=== PATIENT | female | born 1945 | race Caucasian/White ===

== ENCOUNTER 2023-04-29 11:32 | Observation (INO) | payer MEDICARE, OTHER ==
[~2023-04-29] VITALS: Ht 152.4 cm; Wt 66.0 kg
[2023-04-29 12:26] LABS: BASOPHILS ABSOLUTE AUTO 0.03 K/mm3 (0.00-0.23); BASOPHILS PERCENT AUTO 1 % (0-2); EOSINOPHILS ABSOLUTE AUTO 0.09 K/mm3 (0.00-0.68); EOSINOPHILS PERCENT AUTO 1 % (0-6); Hematocrit 42.6 % (33.0-51.0); Hemoglobin 14.1 g/dL (11.5-16.0); IMMATURE GRAN ABSOLUTE AUTO 0.01 K/mm3 (0.00-0.10); IMMATURE GRAN PERCENT AUTO 0 % (0-1); LYMPHOCYTES ABSOLUTE AUTO 2.14 K/mm3 (0.84-5.20); LYMPHOCYTES PERCENT AUTO 33 % (21-46); MONOCYTES ABSOLUTE AUTO 0.47 K/mm3 (0.16-1.47); MONOCYTES PERCENT AUTO 7 % (4-13); Mean Corpuscular HGB 30.5 pg (26.0-34.0); Mean Corpuscular HGB Conc 33.1 g/dL (31.5-36.5); Mean Corpuscular Volume 92 fL (80-100); Mean Platelet Volume 9.5 fL (9.1-12.4); NEUTROPHILS ABSOLUTE AUTO 3.72 K/mm3 (1.96-9.15); NEUTROPHILS PERCENT AUTO 58 % (41-73); Platelet Count 252 K/mm3 (150-400); RDW Coefficient Variation 12.5 % (11.7-14.2); RDW Standard Deviation 42.3 fL (35.1-46.3); Red Blood Cell Count 4.62 M/mm3 (3.80-5.20); White Blood Cell Count 6.46 K/mm3 (4.00-11.30)
[2023-04-29 12:40] LABS: Albumin, Blood 3.2 g/dL (3.4-5.0); Albumin/Globulin Ratio 0.9 (0.8-1.8); Bilirubin, Total 0.5 mg/dL (0.1-1.0); Bun/Creatinine Ratio 20.4 (12.0-20.0); Calcium, Blood 8.8 mg/dL (8.5-10.1); Creatinine, Blood 0.83 mg/dL (0.40-1.00); Globulin, Blood 3.6 g/dL (2.2-4.0); Potassium, Blood 4.3 mmol/L (3.5-5.5); Total Protein, Blood 6.8 g/dL (6.4-8.2)
[2023-04-29] MEDS ORDERED: AMLODIPINE BESYL5 MG PO (14:27)
[2023-04-29] MEDS ORDERED: IMITREX50 M2 PO (14:27)
[2023-04-29] MEDS ORDERED: TEMA30 PO (14:27)
[2023-04-29] MEDS ORDERED: FUROSEMIDE20 MG PO (14:27)
[2023-04-29] MEDS ORDERED: K-Dur10 MEQ (14:27)
[2023-04-29] MEDS ORDERED: PROPRANOLOL HCL80 MG PO (16:08)
[2023-04-29 16:10] VITALS: BP 160/88
[2023-04-29] MEDS ORDERED: LISI20 (16:46)
--- NOTE | 2023-04-29 18:09 | NUR ---
ADMIT NOTE/SHIFT SUMMARY PT IS ALERT AND ORIENTED X 4, SHE IS INDEPENDENT IN ROOM AND APPEARS STEADY ON HER FEET. SBP NOTED TO BE 160, PT REPORTED HX OF HTN. SHE ALSO REPORTED MISSING AM/DAILY MEDICATIONS, MED REC COMPLETE BY THIS RN, HOME MEDICATIONS TO BE RESUMED 04/30/23 AT 0900. PT DENIES FEELINGS OF CHEST PAIN/PRESSURE, FEELING SOB OR LIGHTHEADED/DIZZY. SHE DENIED NAUSEA AND REPORTED HUNGER STATING SHE HAD NOT EATEN SINCE YESTERDAY AT DINNER. FOOD REQUEST/TRAY ORDERED, SHE IS ON CARDIAC DIET. PT'S SISTER WAS AT BEDSIDE WHEN ADMIT. TO PCU, GRANDDAUGHTER IS CURRENTLY AT BEDSIDE. NO COUGH NOTED. SHE IS INDEPENDENT TO BATHROOM. IV IS SALINE LOCKED. CALL LIGHT IS W/IN REACH.
[2023-04-29 21:15] VITALS: BP 142/86
[2023-04-30 00:10] VITALS: BP 110/60
[2023-04-30 01:37] LABS: Anion Gap 6 mmol/L (6-16); Blood Urea Nitrogen 18 mg/dL (8-24); CHOL/HDL RATIO 3.6; CO2, Blood 26 mmol/L (21-32); Calcium, Blood 8.9 mg/dL (8.5-10.1); Chloride, Blood 109 mmol/L (98-108); Cholesterol 175 mg/dL (50-200); Creatinine, Blood 0.75 mg/dL (0.40-1.00); Glomerular Filtration Rate 83 (60-); Glucose, Blood 115 mg/dL (70-99); HDL Cholesterol 48 mg/dL (>39); LDL/HDL RATIO 1.9; Low Density Lipoprotein Chol 90 mg/dL (0-110); Potassium, Blood 3.8 mmol/L (3.5-5.5); Sodium, Blood 141 mmol/L (136-145); Triglycerides 187 mg/dL (30-160); Very Low Density Lipoprot Chol 37 mg/dL (6-32)
[2023-04-30 01:41] LABS: Hematocrit 42.2 % (33.0-51.0); Hemoglobin 14.2 g/dL (11.5-16.0); Mean Corpuscular HGB 30.8 pg (26.0-34.0); Mean Corpuscular HGB Conc 33.6 g/dL (31.5-36.5); Mean Corpuscular Volume 92 fL (80-100); Mean Platelet Volume 9.9 fL (9.1-12.4); Platelet Count 247 K/mm3 (150-400); RDW Coefficient Variation 12.4 % (11.7-14.2); RDW Standard Deviation 41.1 fL (35.1-46.3); Red Blood Cell Count 4.61 M/mm3 (3.80-5.20); White Blood Cell Count 7.33 K/mm3 (4.00-11.30)
[2023-04-30 03:56] VITALS: BP 113/68
--- NOTE | 2023-04-30 04:26 | NUR ---
SHIFT SUMMARY: PT ALERT AND ORIENTED X4. ABLE TO FOLLOW COMMANDS AND MAKE NEEDS KNOWN. COOPERATIVE WITH CARE. STRENGTH EQUAL BILATERALLY. HR SR 70'S. PT DENIES CP/PRESSURE/SOB THROUGHOUT THE NIGHT. PULSES STRONG AND EQUAL THROUGHOUT. AFEBRILE. SATS >98% ON ROOM AIR. NPO AT 0000 FOR STRESS TEST IN AM. PT IND IN ROOM. NO BM. AQEQUATE URINARY OUTPUT. DENIES PAIN. PT SLEPT ON AND OFF THROUGHOUT THE NIGHT. BED IN LOW, CALL LIGHT IN REACH, WILL REPORT TO ONCOMING RN.
[2023-04-30 07:32] VITALS: BP 130/82
--- NOTE | 2023-04-30 07:43 | NUR ---
AM NOTE PT IS ALERT AND ORIENTED X 4, VSS. SHE DENIED FEELINGS OF CHEST PAIN/PRESSURE WELL SOB. SHE DENIED FEELINGS OF NAUSEA, LIGHTHEADEDNESS OR DIZZINESS. SHE REPORTED SLEEPING WELL LAST NIGHT. SHE IS NPO FOR STRESS TEST THIS AM. SHE IS INDEPENDENT TO BATHROOM AND STEADY ON HER FEET. TELE MONITORING IN PLACE.
--- NOTE | 2023-04-30 09:36 | NUR ---
CARE NOTE PT REQUESTED TO POSTPONE LASIX ADMINISTRATION UNTIL STRESS TEST COMPLETE.
[2023-04-30 11:42] VITALS: BP 135/77
[2023-04-30] MEDS ORDERED: ASPI81CH PO (15:25)
[2023-04-30] MEDS ORDERED: OMEP20ER PO (15:26)
--- NOTE | 2023-04-30 15:58 | NUR ---
DISCHARGE NOTE PT ALERT AND ORIENTED X 4, VSS. SHE DENIED FEELINGS OF CHEST PAIN/PRESSURE, SHE DENIED SOB, NAUSEA/VOMITTING. THIS RN DISCUSSED DISCHARGE INSTRUCTIONS W/ PT INCLUDING MEDICATION REGIMEN AND FOLLOW UP APPOINTMENTS. IV WAS REMOVED BY TAZ MULLER CNA. PT LEFT PCU AT APPROX. 1550 AND WAS ESCORTED OUTSIDE BY THIS RN. PT WAS STABLE UPON DISCHARGE AND LEFT W/ ALL OF PERSONAL BELONGINGS.
== END 2023-04-30 15:52 | disposition home or self-care (01) ==
LOC: ER 11:32 → PCU 11:33
PROVIDERS: Emergency Medicine; ADMIT Internal Medicine
DX: R07.89 Other chest pain (principal); E78.1 Pure hyperglyceridemia; I10 Essential (primary) hypertension; I25.10 Atherosclerotic heart disease of native coronary artery without angina pectoris; G43.909 Migraine, unspecified, not intractable, without status migrainosus
CPT/HCPCS: 36415; 71045; 78452; 80048; 80053; 80061; 84484; 85025; 85027; 93005; 93010; 93017; 96372; 99285-25; A9270; A9500; G0378; J0706; J1650; J2785

== ENCOUNTER 2024-12-20 07:16 | Day surgery (SDC) | payer MEDICARE, OTHER ==
[~2024-12-20] VITALS: Ht 152.4 cm; Wt 69.0 kg
[~2024-12-20 07:16] MED LIST: AMLODIPINE BESYL5 MG PO; ASPI81CH PO; FUROSEMIDE20 MG PO; IMITREX50 M2 PO; K-Dur10 MEQ; LISI20; OMEP20ER PO; PROPRANOLOL HCL80 MG PO; TEMA30 PO
[2024-12-20] MEDS ORDERED: FentaNYL Citrate 50 MCG/ML 2 ML Injection ONE (07:42)
[2024-12-20] MEDS ORDERED: propofoL 40 ML IV ONE (07:42)
[2024-12-20] MEDS ORDERED: CeFAZolin Sodium 2,000 MG VIAL ONE (07:55)
[2024-12-20] MEDS ORDERED: Lactated Ringer's 1,000 ML IV ONE ×2 (07:55→08:14)
[2024-12-20] MEDS ORDERED: TRAZ100 PO (08:05)
[2024-12-20] MEDS ORDERED: CLOBETASOL EMOL15 G1 (08:07)
[2024-12-20] MEDS ORDERED: Triamcinolone A15 GM (08:07)
[2024-12-20] MEDS ORDERED: XDEMVY10 ML (08:07)
[2024-12-20] MEDS ORDERED: EYLEA2 MG/0.02 IO (08:09)
--- NOTE | 2024-12-20 08:21 | NUR ---
[facility] TEAR TO L HAND
[2024-12-20] MEDS ORDERED: Bupivacaine 0.5% W/EPI 1:200000 SDV 30 ML Vial ONE (08:32)
[2024-12-20 09:03] VITALS: BP 103/57
--- NOTE | 2024-12-20 09:29 | NUR ---
12/20/24 0929 KATY INGRAM UP IN RECLINER, FOOT ELEVATED, ICE IN PLACE. PT SNACKING AND DRINKING WITHOUT COMPLAINTS. STATES ALL NEEDS ARE MET AT THIS TIME. AWAITING FAMILY MEMBER FOR TRANSPORT HOME. CALL LIGHT IN PLACE.
== END 2024-12-20 09:39 | disposition home or self-care (01) ==
LOC: ORSCSDS 07:16
PROVIDERS: Podiatrist Foot & Ankle Surgery
PROC: 0QBR0ZZ Excision of Left Toe Phalanx, Open Approach (ICD-10-PCS; principal; 2024-12-20 08:45)
DX: M77.32 Calcaneal spur, left foot (principal); Z79.899 Other long term (current) drug therapy; I10 Essential (primary) hypertension; I25.2 Old myocardial infarction; I25.10 Atherosclerotic heart disease of native coronary artery without angina pectoris; E66.9 Obesity, unspecified; Z68.29 Body mass index [BMI] 29.0-29.9, adult
CPT/HCPCS: J0690; J2704; J3010; J7120